=== PATIENT | male | born 1985 | race Two or more races ===

== ENCOUNTER 2021-02-28 15:22 | Emergency (ER) | payer BC ==
[~2021-02-28] VITALS: Ht 182.9 cm; Wt 91.0 kg
--- NOTE | 2021-02-28 16:52 | PHYS DOC ---
Past Medical History Past Surgical History: No Surgical History (PAMELA MCKINLEY APRN) General Adult EDM: Chief Complaint: UPPER EXTREMITY PAIN HPI: HPI: Patient is a 36 year old male presents emergency department reporting he was sent here by urgent care to see an orthopedic surgeon related to his right elbow pain. Patient reports he fell off a horse this afternoon and landed on his elbow, went to urgent care, was diagnosed with that elbow effusion and told to come straight to the emergency department. The patient reports a 8 out of 10 pain, states he has not taken any pain medications or tried any nonpharmacological pain relief therapies prior to arrival to the emergency department. Patient reports he is visiting here from [place] and will be going back home this coming Thursday morning. Patient denies other physical complaints or physical concerns. (PAMELA MCKINLEY APRN) Review of Systems: Review of Systems: 14 body systems of review of systems have been reviewed. See HPI for pertinent positives and negative responses, otherwise all other systems are negative, nonpertinent or noncontributory. Constitutional: Negative except as outlined in HPI above. Skin: Negative except as outlined in HPI above. Eyes: Negative except as outlined in HPI above. HENT: Negative except as outlined in HPI above. Respiratory: Negative except as outlined in HPI above. Cardiovascular: Negative except as outlined in HPI above. GI: Negative except as outlined in HPI above. : Negative except as outlined in HPI above. Musculoskeletal: Negative except as outlined in HPI above. Integument: Negative except as outlined in HPI above. Neurologic: Negative except as outlined in HPI above. Endocrine: Negative except as outlined in HPI above. Lymphatic: Negative except as outlined in HPI above. Psychiatric: Negative except as outlined in HPI above. (PAMELA MCKINLEY APRN) Heart Score: C/O Chest Pain: No Risk Factors: Risk Factors: DM, Current or recent (<one month) smoker, HTN, HLP, family history of CAD, obesity. Risk Scores: Score 0 - 3: 2.5% MACE over next 6 weeks - Discharge Home Score 4 - 6: 20.3% MACE over next 6 weeks - Admit for Clinical Observation Score 7 - 10: 72.7% MACE over next 6 weeks - Early Invasive Strategies (PAMELA MCKINLEY APRN) Allergies: Allergies: Allergies Coded Allergies Type Severity Reaction Last Updated Verified No Known Drug Allergies 02/28/21 No (PAMELA MCKINLEY APRN) Physical Exam: PE: Constitutional: Well developed, well nourished, no acute distress, non-toxic appearance. 36-year-old male in no apparent distress. HENT: Normocephalic, atraumatic. Eyes: Conjunctiva normal, no discharge. Neck: Normal range of motion, no stridor. Cardiovascular: No cyanosis appreciated, distal cap refill less than 2 seconds. Lungs & Thorax: Patient is in no respiratory distress, no audible adventitious lung sounds appreciated. Abdomen: Nontender, no abnormalities noted. Skin: Warm, dry, no erythema, no rash. Back: No tenderness, no deformities. Extremities: No tenderness, no cyanosis, no clubbing, ROM intact, no edema. Patient was in sling for initial part of exam, removed right upper extremity fr om sling, right elbow mild swelling, skin is intact, brachial and radial pulse 2+, distal cap refill less than 2 seconds, limited passive range of motion related to pain of elbow. No loss of sensation. Neurologic: Alert and oriented X 3, normal motor function, normal sensory function, no focal deficits noted. Psychologic: Affect normal, judgement normal, mood normal. (PAMELA MCKINLEY APRN) Current Patient Data: Vital Signs: Vital Signs Date Time Temp Pulse Resp B/P (MAP) Pulse Ox O2 Delivery O2 Flow Rate FiO2 02/28/21 15:51 97.9 99 16 142/83 (102) 99 Room Air 97.9 (PAMELA MCKINLEY APRN) EKG: EKG: [] (PAMELA MCKINLEY APRN) Radiology/Procedures: Radiology/Procedures: [] (PAMELA MCKINLEY APRN) Course & Med Decision Making: Course & Med Decision Making Pertinent Labs and Imaging studies reviewed. (See chart for details) 36-year-old male, vital signs reviewed, presents to the emergency department to see orthopedic surgeon. Reviewed patient's case from urgent care, reviewed x- rays and x-ray report online. Discussed with patient will place posterior long- arm splint in position of comfort with sling, ice packs 30 minutes on 30 minutes off while awake, will prescribe pain medications, will give oral pain medication in the ED prior to discharge, call tomorrow for appointment with orthopedic surgeon in [place], strict return to ER precautions and concerns, patient reports he does have a orthopedic surgeon in [place] which he will call tomorrow for an appointment soon. Patient is amenable to ED discharge planning. CD copies of x-rays made by radiology staff to be given to patient. Posterior long-arm splint in position of comfort placed by ED nursing staff is in satisfactory position, distal cap refill less than 2 seconds, remains neurovascular intact at disposition time. Discussed with the patient all findings and diagnostic testing as well as the need to follow-up with their primary care provider for further evaluation and treatment or return to the ED if any new or worsening symptoms. Strict return precautions were also discussed at length, the patient voiced understanding and agreement with the discharge planning. The patient was nontoxic in appearance, in no apparent distress, and hemodynamically stable at the time of disposition. (PAMELA MCKINLEY APRN) Dragon Disclaimer: Dragon Disclaimer: This electronic medical record was generated, in whole or in part, using a voice recognition dictation system. (PAMELA MCKINLEY APRN) Departure Departure Impression: Primary Impression: Occult closed fracture of elbow Qualified Codes: S42.401A - Unspecified fracture of lower end of right humerus, initial encounter for closed fracture Disposition: HOME / SELF CARE / HOMELESS Condition: GOOD Patient Instructions: Elbow Effusion-Brief, Elbow Injury Additional Instructions: You were seen today in the emergency department for elbow pain after a fall off a horse. Your x-rays were done at a local urgent care center. The radiologist read them as a effusion of the right elbow. Effusions of the elbow can be signs of an acute occult fracture, this means there is a broken bone however we are unable to see at this early in the healing process. With your history of falling off a horse and landing on your elbow, this leads me to believe that an occult fracture is more likely than not. Therefore you were placed in a splint until you can be reevaluated by an orthopedic surgeon. You have been given a disc copy of your x-rays to bring with you for your visit. You had indicated that you are from [place] and are returning back home this coming Thursday. Please make an appointment to see your orthopedic surgeon this coming week. Please ice and elevate as we discussed, ice packs 30 minutes on and 30 minutes off while awake. I have prescribed for you pain medications to help with pain and discomfort. Please take them as directed. Thank you for visiting our Emergency Department. It was a pleasure taking care of you today in the emergency department and we appreciate you trusting us with your care. If any additional problems come up don't hesitate to return to visit us. Please follow up with your primary care provider so they can plan additional care if needed and know about the problem that you had. If symptoms worsen come back to the Emergency Department. Any concerning symptoms that start such as chest pain, shortness of air, weakness or numbness on one side of the body, running high fevers or any other concerning symptoms return to the ER. EMERGENCY DEPARTMENT GENERAL DISCHARGE INSTRUCTIONS Thank you for coming to [facility] Emergency Department (ED) today and trusting us with you care. We trust that you had a positive experience in our Emergency Department. If you wish to speak to the department management, you may call the Director at [phone]. YOUR FOLLOW UP INSTRUCTIONS ARE FOLLOWS: 1. Do you have a private Doctor? If you do not have a private doctor, please ask for a resource list of physicians or clinics that may be able to assist you with follow up care. 2. The Emergency Physicain has interpreted your x-rays. The X-Ray specialist will also review them. If there is a change in the findings, you will be notified in 48 hours when at all possible. 3. A lab test or culture has been done, your results will be reviewed and you will be notified if you need a change in treatment. ADDITIONAL INSTRUCTIONS AND INFORMATION: 1. Your care today has been supervised by a physician who is specially trained in emergency care. Many problems require more than one evaluation for a complete diagnosis and treatment. We recommend that you schedule your follow up appointment as recommended to ensure complete treatment of you illness or injury. If you are unable to obtain follow up care and continue to have a problem, or if your condition worsens, we recommend that you return to the ED. 2. We are not able to safely determine your condition over the phone nor are we able to give sound medical advice over the phone. For these safety reasons, if you call for medical advice we will ask you to come to the ED for further evaluation. 3. If you have any questions regarding these discharge instructions please call the ED at [phone]. SAFETY INFORMATION: In the interest of safety, wellness, and injury prevention; we encourage you to wear your sealbelt, if you smoke; quite smoking, and we encourage family to use a protective helmet for bicycling and other sporting events that present an increased risk for head injury. IF YOUR SYMPTOMS WORSEN OR NEW SYMPTOMS DEVELOP, OR YOU HAVE CONCERNS ABOUT YOUR CONDITION; OR IF YOUR CONDITION WORSENS WHILE YOU ARE WAITING FOR YOUR FOLLOW UP APPOINTMENT; EITHER CONTACT YOUR PRIMARY CARE DOCTOR, THE PHYSICIAN WHOSE NAME AND NUMBER YOU WERE GIVEN, OR RETURN TO THE ED IMMEDIATELY. Scripts Ibuprofen (IBUPROFEN) 600 Mg Tablet 600 MG PO PRN Q6HRS PRN for INFLAMMATION, #30 TAB 0 Refills Prov: PAMELA MCKINLEY APRN 02/28/21 Hydrocodone Bit/Acetaminophen (HYDROCODONE-APAP 5-325 ) 1 Tab Tablet 1 TAB PO PRN Q6HRS PRN for SEVERE PAIN 7-10, #30 TAB 0 Refills Prov: PAMELA MCKINLEY APRN 02/28/21 Attending Signature I have participated in the care of this patient and I have reviewed and agree with all pertinent clinical information above including history, exam, and recommendations. (SHARONDA COHEN DO) PAMELA MCKINLEY APRN Feb 28, 2021 16:52 SHARONDA COHEN DO Mar 05, 2021 05:52
[2021-02-28] MEDS ORDERED: HYDR-2761 PO (17:05)
[2021-02-28] MEDS ORDERED: IBUP-1007 PO (17:05)
[2021-02-28 17:14] VITALS: BP 118/75
[2021-02-28] MEDS ORDERED: HYDROcodone/APAP 5/325MG 1 TAB TABLET PO ONE (17:30)
[2021-02-28] MEDS ORDERED: IBUPROFEN 200 MG TABLET. PO ONE (17:30)
== END 2021-02-28 17:16 | disposition home or self-care (01) ==
LOC: ER 15:22
DX: S42.491A Other displaced fracture of lower end of right humerus, initial encounter for closed fracture (principal); V80.010A Animal-rider injured by fall from or being thrown from horse in noncollision accident, initial encounter; Y93.89 Activity, other specified; Y92.89 Other specified places as the place of occurrence of the external cause; Y99.8 Other external cause status
CPT/HCPCS: 29105; 99283